=== PATIENT | male | born 2000 | race Caucasian/White ===

== ENCOUNTER 2021-09-08 01:32 | Emergency (ER) | payer OTHER ==
[2021-09-08 03:13] LABS: HEMOGLOBIN 14.4 gm/dl (14.0-17.5); RED BLOOD COUNT 4.59 M/UL (4.20-5.50); WHITE BLOOD COUNT 5.2 K/UL (4.5-11.0)
[2021-09-08 03:37] LABS: BUN/CREATININE RATIO 16 (0-10)
[2021-09-08] MEDS ORDERED: LAMICTAL25 MG PO (04:56)
== END 2021-09-08 05:24 | disposition home or self-care (01) ==
LOC: ER1 01:32
PROVIDERS: Emergency Medicine
DX: G40.409 Other generalized epilepsy and epileptic syndromes, not intractable, without status epilepticus (principal); S01.81XA Laceration without foreign body of other part of head, initial encounter; Z23 Encounter for immunization; X58.XXXA Exposure to other specified factors, initial encounter
CPT/HCPCS: 12011; 80048; 80175; 85025; 90714; 99284

== ENCOUNTER 2021-09-19 13:02 | Emergency (ER) | payer OTHER ==
[~2021-09-19 13:02] MED LIST: LAMICTAL25 MG PO
== END 2021-09-19 13:57 | disposition home or self-care (01) ==
LOC: ER1 13:02
DX: S01.81XD Laceration without foreign body of other part of head, subsequent encounter (principal); X58.XXXD Exposure to other specified factors, subsequent encounter
CPT/HCPCS: 99281